=== PATIENT | male | born 1930 | race Caucasian/White ===

== ENCOUNTER 2017-05-13 06:21 | Day surgery (SDC) | payer OTHER ==
[2017-05-12 10:52] VITALS: BMI 30.9
[2017-05-13] MEDS ORDERED: MIDAZOLAM HCL 2 MG/2 ML SINGLE DOSE VIAL ONE (07:51)
[2017-05-13] MEDS ORDERED: PROPOFOL 20 ML ONE (07:51)
[2017-05-13] MEDS ORDERED: LIDOCAINE HCL/PF 2% SDV 5ML VIAL ONE (08:09)
[2017-05-13] MEDS ORDERED: LEVOFLOXACIN 500 MG IVPB 100 ML IVPB ONE (08:09)
[2017-05-13] MEDS ORDERED: LEVOFLOXACIN 500 MG PREMIX BAG IVPB ONE (08:12)
[2017-05-13] MEDS ORDERED: DEXAMETHASONE SOD PHOSPHATE 4 MG/1 ML VIAL ONE (08:23)
[2017-05-13] MEDS ORDERED: SEVOFLURANE 250 ML BTL ONE (08:32)
[2017-05-13] MEDS ORDERED: FUROSEMIDE 40 MG/4 ML INJECTABLE VIAL ONE (09:31)
[2017-05-13] MEDS ORDERED: oxyCODONE HCL 5 MG TABLET PO PRN (09:38)
--- NOTE | 2017-05-13 09:42 | OP ---
Operative Note - Note: Operative Date: 05/13/17 Pre-Operative Diagnosis: large left lateral wall bladder tumor Operation: TURBT Findings: very large left lat wall/trigone bladder tumor Post-Operative Diagnosis: Same as Pre-op Surgeon: Valentín Woodruff Anesthesia: General Specimens Removed: bladder tumor Estimated Blood Loss (mls): 20 Operative Report Dictated: Yes
[2017-05-13] MEDS ORDERED: PROMETHAZINE HCL 25 MG/1 ML VIAL IVPUSH PRN (09:47)
[2017-05-13] MEDS ORDERED: ONDANSETRON 4 MG/2 ML VIAL IVPUSH PRN (09:47)
--- NOTE | 2017-05-13 12:08 | OP ---
DATE OF OPERATION: PREOPERATIVE DIAGNOSIS: Large bladder tumor. POSTOPERATIVE DIAGNOSIS: Large bladder tumor. PROCEDURE: Transurethral resection of bladder tumor. SURGEON: Lisa Oneil MD INDICATION: The patient is an 87-year-old male for workup of hematuria noted to have a very large left lateral wall and trigone bladder tumor. Took him up for resection. Risks, benefits, and alternatives were discussed in detail. DESCRIPTION OF PROCEDURE: After informed consent was obtained, the patient was taken to the OR and placed supine on the table. Cardiac monitoring was administered. General anesthesia was established. She was prepped and draped in the dorsal lithotomy position. A 22-sheath to 26-sheath resectoscope with a visual obturator was inserted to the urethra without difficulty. There was a small stricture in the anterior urethra, but this was bypassed with a scope. The prostatic urethra, was approximately 4cm. There was a very large left-sided bladder tumor that superficially appeared papillary to superficial surface, but as I cut deep into it, it was solid. It was completely covering the whole left side of the lateral wall and trigone of the bladder. The left ureteral orifice would not be visualized. Right ureteral orifice was seen. There was another small tumor next to the right ureteral orifice, and this was resected first. Then attention was turned to the large tumor, and approximately 50% of the tumor was resected. It was approximately 6 cm in size. It was very large. Approximately 50% of the tumor was resected as well as a portion of the base of the tumor as it entered into the bladder wall. All bleeding sites were cauterized. At the end of the procedure, no active bleeding was noted. All tumor chips were removed with the Parking Panda evacuator and sent to Pathology for analysis. A 22-Cypriot Mandujano catheter was placed for straight drainage, and pink-tinged urine was retrieved. The patient was awoken from anesthesia and transferred to recovery room in stable condition. There were no complications. Estimated blood loss was 20 mL. LISA ONEIL M.D. [id number] MTDD
[2017-05-13] MEDS: DEXTROSE 5%-0.45% SALINE 1,000 ML IV SCH (17:30)
[2017-05-13] MEDS: LACTATED RINGERS SOLUTION 1,000 ML IV SCH (17:30)
[2017-05-14 05:32] VITALS: TEMP 98
[2017-05-14] MEDS ORDERED: LEVOFLOXACIN 500 MG TABLET (FP) PO SCH (10:00)
[2017-05-14] MEDS: DEXTROSE 5%-0.45% SALINE 1,000 ML IV SCH (10:28)
[2017-05-14] MEDS: LACTATED RINGERS SOLUTION 1,000 ML IV SCH (10:28)
[2017-05-14 11:05] VITALS: BP 132/72; PULSE 70
--- NOTE | 2017-05-14 12:31 | PATH ---
Surgical Pathology Report Patient Name: ERIKA CALZADA [facility]. Rec. #: [id number] /Age/Gender: 1930 (Age: 87) / M Account: [id number] Location: AMBULATORY SURG Taken: 05/13/2017 Received: 05/13/2017 Reported: 05/14/2017 Physicians: Valentín Woodruff M.D. 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 LAMINA PROPRIA INVASION: NOT IDENTIFIED. MUSCULARIS PROPRIA (DETRUSOR): NOT IDENTIFIED. CARCINOMA IN SITU (CIS): NOT IDENTIFIED. Electronically Signed Franky Hess M.D. Gross Description Received in formalin labeled "bladder tumor" is a 4.5 x 3.0 x 0.5 cm aggregate of corcoran-pink soft tissue fragments. The formalin is filtered and the specimen is entirely submitted in 3 cassettes. /05/13/2017 saudi05/13/2017
== END 2017-05-14 12:00 | disposition home or self-care (01) ==
LOC: JASU-SURG 06:21 → JASUSAT 06:21 → J8W 12:15 → JASUSAT 05-14 12:00
PROVIDERS: ATTEND Urology
PROC: 0T5B8ZZ Destruction of Bladder, Via Natural or Artificial Opening Endoscopic (ICD-10-PCS; principal; 2017-05-13 08:00)
DX: C67.9 Malignant neoplasm of bladder, unspecified (principal)
CPT/HCPCS: 88307-TC; 94760

== ENCOUNTER 2017-06-10 06:29 | Day surgery (SDC) | payer OTHER ==
[2017-06-07 14:03] VITALS: BMI 30.9
[2017-06-10] MEDS ORDERED: ONDANSETRON 4 MG/2 ML VIAL IVPUSH PRN (08:42)
[2017-06-10] MEDS ORDERED: PROMETHAZINE HCL 25 MG/1 ML VIAL IVPUSH PRN (08:42)
[2017-06-10] MEDS ORDERED: LACTATED RINGERS SOLUTION 1,000 ML IV SCH (08:45)
[2017-06-10] MEDS ORDERED: MIDAZOLAM HCL 2 MG/2 ML SINGLE DOSE VIAL ONE (08:52)
[2017-06-10] MEDS ORDERED: LEVOFLOXACIN 500 MG IVPB 100 ML IVPB ONE (08:59)
[2017-06-10] MEDS ORDERED: ROCURONIUM BROMIDE 50 MG/5 ML VIAL ONE (09:44)
[2017-06-10] MEDS ORDERED: DEXAMETHASONE SOD PHOSPHATE 4 MG/1 ML VIAL ONE (10:02)
[2017-06-10] MEDS ORDERED: LEVOFLOXACIN 500 MG PREMIX BAG IVPB ONE (10:07)
[2017-06-10] MEDS ORDERED: GLYCOPYRROLATE 0.2 MG/1 ML VIAL ONE (10:08)
[2017-06-10] MEDS ORDERED: NEOSTIGMINE METHYLSULFATE 0.5 MG/1 ML - 10 ML MDV ONE (10:08)
[2017-06-10] MEDS ORDERED: oxyCODONE HCL 5 MG TABLET PO PRN (10:16)
[2017-06-10] MEDS ORDERED: DEXTROSE 5%-0.45% SALINE 1,000 ML IV SCH (10:30)
--- NOTE | 2017-06-10 11:52 | EKG ---
Test Reason : Blood Pressure : / mmHG Vent. Rate : 072 BPM Atrial Rate : 039 BPM P-R Int : 000 ms QRS Dur : 092 ms QT Int : 380 ms P-R-T Axes : 000 -22 010 degrees QTc Int : 416 ms ATRIAL FIBRILLATION ABNORMAL ECG NO PREVIOUS ECGS AVAILABLE Confirmed by ADRIANA THOMPSON MD ([id number]) on 06/10/2017 11:51:49 AM Referred By: Valentín Woodruff Confirmed By:ADRIANA THOMPSON MD
--- NOTE | 2017-06-10 15:12 | OP ---
DATE OF OPERATION: DATE OF DICTATION: 06/10/2017 PREOPERATIVE DIAGNOSIS: Large bladder tumor. POSTOPERATIVE DIAGNOSIS: Large bladder tumor. PROCEDURE: Transurethral resection of bladder tumor. SURGEON: Lisa Oneil MD INDICATION: Patient is an 87-year-old male who underwent partial resection of a very large bladder tumor approximately 1 month ago and was taken to the OR today for repeat resection. His initial pathology did not have any muscle specimen. DESCRIPTION OF PROCEDURE: After informed consent was obtained, patient was taken to OR for completion of a TRBT. He was given 1 g of Ancef, and after general anesthesia was established, he was prepped and draped in the dorsal lithotomy position. A 26-sheath resectoscope with visual obturator was inserted into the urethra without difficulty into his normal prostatic urethra that was 4 cm and visually occlusive. The bladder was then visualized. A large bladder tumor was noted on the left trigonal bladder. The ureteral orifice could not be visualized. The bladder tumor was resected in its entirety and sent to Pathology for analysis. Separate specimen was taken at the base of the tumor to rule out muscle invasion. Even with the bladder tumor resected, a left ureteral orifice could not be seen, and no evidence of efflux from the orifice area of where the expected orifice would be was noted either. At this point, all bleeding sites were fulgurated including the base of the tumor. No other tumors were noted. There was clear efflux from the right ureteral orifice. At this point, resectoscope was then removed, after removal of all the tumor fragments, and a Mandujano catheter was then placed for drainage. Light pink tinged urine was retrieved. The patient was awoken from anesthesia and transferred to recovery room in stable condition. There were no complications. Estimated blood loss was minimal. LISA ONEIL M.D. [id number]
--- NOTE | 2017-06-11 13:09 | PATH ---
Surgical Pathology Report Patient Name: ERIKA CALZADA Med. Rec. #: [id number] /Age/Gender: 1930 (Age: 87) / M Account: [id number] Location: [facility] MED/SURG Taken: 06/10/2017 Received: 06/10/2017 Reported: 06/11/2017 Physicians: Valentín Woodruff M.D. Specimen(s) Received A: BLADDER TUMOR B: BASE OF TUMOR Clinical History Bladder tumor Final Diagnosis A. BLADDER, TUR: NON-INVASIVE LOW-GRADE PAPILLARY UROTHELIAL CARCINOMA. NO FLAT UROTHELIAL CARCINOMA IN SITU IDENTIFIED. NO LYMPH VASCULAR INVASION IDENTIFIED. B. BLADDER, BASE OF TUMOR, TUR: NON-INVASIVE LOW GRADE PAPILLARY UROTHELIAL CARCINOMA. NO FLAT UROTHELIAL CARCINOMA IN SITU IDENTIFIED. NO LYMPH VASCULAR INVASION IDENTIFIED. MUSCULARIS PROPRIA (DETRUSOR MUSCLE) IS PRESENT AND IS FREE OF CARCINOMA. Comment: Also see prior specimen [id number]. Electronically Signed Vinicius Dozier M.D. Gross Description A. Received in formalin labeled "bladder tumor," is a 3.0 x 2.0 x 0.3 cm aggregate of corcoran soft tissue fragments. The formalin is filtered and the specimen is entirely submitted in one cassette. B. Received in formalin labeled "base of tumor," are 6 corcoran-pink soft tissue fragments ranging from 0.4-0.9 cm in greatest dimension. The specimens are submitted in toto in one cassette. /06/10/201706/10/2017
[2017-06-11 15:26] VITALS: BP 137/70; PULSE 81; TEMP 97.8
== END 2017-06-11 16:30 | disposition home or self-care (01) ==
LOC: JASUSAT 06:29 → JASU-SURG 06:29 → J8W 15:15 → JASUSAT 06-11 16:30
PROVIDERS: ATTEND Urology
PROC: 0T5B8ZZ Destruction of Bladder, Via Natural or Artificial Opening Endoscopic (ICD-10-PCS; principal; 2017-06-10 08:30)
DX: C67.9 Malignant neoplasm of bladder, unspecified (principal)
CPT/HCPCS: 88307-TC; 93005; 93010; 94760

== ENCOUNTER 2019-05-02 15:00 | Emergency (ER) | payer OTHER ==
[2019-05-02 15:24] VITALS: BMI 25.3
--- NOTE | 2019-05-02 16:04 | PDOC ---
History of Present Illness - General Chief Complaint: Nausea/Vomiting Stated Complaint: VOMITING Time Seen by Provider: 05/02/19 16:03 History Source: Patient Exam Limitations: No Limitations - History of Present Illness Initial Comments: Pt is an 89 yo M, with PMH of HTN, hypothyroidism, R eye blindness, and bladder/ prostate mass (removed by TURBT), who is presenting with multiple episodes of nausea and NBNB vomiting since today. Pt states he has been eating normally and in his usual state of health until this morning. Pt denies any abdominal pain and states his BMs have been normal for him. Pt also endorses b/l eye drainage when prompted, "over a few weeks I guess". Pt denies any recent fevers/chills, neck stiffness, headache, vision changes, syncope, chest pain, palpitations, SOB , abdominal pain, urinary symptoms, diarrhea/constipation, or leg swelling. Allergies: NKDA PCP: Stephan Social: Pt denies any cigarette, alcohol, or drug use. Pt denies any recent travel or sick contacts. Pt lives with his daughter and is the only one sick. Surgical: b/l inguinal hernia repair, bladder/prostate as above Family: no relevant history. 05/02/19 16:32 05/02/19 16:35 Past History - Travel Traveled outside of the country in the last 30 days: No Close contact w/someone who was outside of country & ill: No - Past Medical History Allergies/Adverse Reactions: Allergies Allergy/AdvReac Type Severity Reaction Status Date / Time Penicillins Allergy Verified 06/10/17 07:23 Home Medications: Ambulatory Orders Diltiazem Cd [Cardizem Cd -] 120 mg PO DAILY 05/12/17 Levothyroxine [Synthroid -] 100 mcg PO DAILY 05/12/17 Sulfamethoxazole/Trimethoprim [Bactrim Ds -] 1 tab PO BID #14 tablet 05/02/19 Cancer: Yes (PROSTATE) COPD: No HTN: Yes Thyroid Disease: Yes - Suicide/Smoking/Psychosocial Hx Smoking History: Former smoker Have you smoked in the past 12 months: No If you are a former smoker, when did you quit?: 20YRS AGO Information on smoking cessation initiated: No Hx Alcohol Use: No Drug/Substance Use Hx: No Substance Use Type: None Hx Substance Use Treatment: No Review of Systems - Review of Systems Able to Perform ROS?: Yes Is the patient limited Ethiopian proficient: No Constitutional: Yes: Weight Stable. No: Chills, Diaphoresis, Fever, Loss of Appetite, Malaise, Weakness HEENTM: Yes: Blurred Vision (chronic R eye blindness, L eye "starting to go blind"). No: Nose Congestion, Throat Pain, Throat Swelling, Difficulty Swallowing Respiratory: No: Cough, Orthopnea, Shortness of Breath Cardiac (ROS): No: Chest Pain, Edema, Irregular Heart Rate, Lightheadedness, Palpitations, Syncope, Chest Tightness ABD/GI: Yes: Nausea, Poor Appetite, Poor Fluid Intake, Vomiting. No: Constipated, Diarrhea, Indigestion, Abdominal cramping : No: Burning, Dysuria, Hematuria, Pain, Urgency Musculoskeletal: No: Back Pain, Joint Pain, Muscle Pain, Muscle Weakness Integumentary: No: Rash Neurological: No: Headache, Numbness, Weakness, Unsteady Gait (ambulates with walker, no recent falls), Dizziness Psychiatric: No: Sleep Pattern Change, Change in Appetite Endocrine: No: Increased Urine, Change in Weight Hematologic/Lymphatic: No: Anemia, Blood Clots, Easy Bleeding, Easy Bruising All Other Systems: Reviewed and Negative *Physical Exam - Vital Signs Last Vital Signs Temp Pulse Resp BP Pulse Ox 97 F L 100 H 20 130/77 94 L 05/02/19 15:22 05/02/19 15:22 05/02/19 15:22 05/02/19 15:22 05/02/19 15:22 - Physical Exam Comments: Tachycardia, pt afebrile. Pt in NAD, thin body habitus. Pt alert and oriented x3. video production specialist generally intact, muscular strength and sensation intact. No midline spinal tenderness, step-offs, or crepitus. Head normocephalic, atraumatic. Eyes PERRLA, EOMI. Oropharynx without erythema or exudates, no LAD b/l. No nasal congestion, hearing intact. Clear heart sounds, S1/S2, no JVD, b/l pedal edema, or heart murmur. Clear lung sounds, no respiratory distress, wheezes, crackles, or accessory muscle use. No abdominal or CVA tenderness to palpation, no rebound, no guarding. Abdomen soft, non-distended, and with normoactive bowel sounds. Skin without jaundice or rash. 05/02/19 16:38 Vital Signs - Vital Signs #1 Temperature: 98.4 F Temperature Source: Rectal ED Treatment Course - LABORATORY CBC & Chemistry Diagram: 05/02/19 16:55 05/02/19 16:55 Medical Decision Making - Medical Decision Making Pt was seen at bedside, also will be seen by attending Dr. Mcadams. Pt presenting with complaints of NBNB nausea and vomiting since this morning. Will evaluate for electrolyte abnormalities, provide GI cocktail. Pt afebrile with no abdominal TTP. Likely to discharge home if improvement and tolerates PO intake. Provided 1L IV NS, 4 mg IV zofran, and 20 mg IV pepcid for improvement of nausea and vomiting.. Will continue to reassess pt and monitor for symptomatic improvement. ECG: NSR with PACs, intervals WNL (HR 99, ND 150, QRS 88, QTc 451). No TWIs or significant ST segment changes. No significant changes from prior ECG (pt was in Afib 05/2017). 05/02/19 17:46 CBC and CMP generally WNL Trop <.02 Pt with no abdominal pain or TTP Pt tolerated PO challenge. Pending UA, lab called. Pt endorsed to night team. 05/02/19 18:53 UA +LE, +bacteria -- providing first dose of Bactrim and will PO challenge with abx 05/02/19 19:19 Called pts daughter who will come to oyster picker the pt. Pt tolerated Bactrim. Pt can f/u with PCP. Strict return precautions provided. Sent bactrim to pts pharmacy. 05/02/19 19:29 *DC/Admit/Observation/Transfer Diagnosis at time of Disposition: Nausea and vomiting Qualifiers: Vomiting type: unspecified Vomiting Intractability: non-intractable Qualified Code(s): R11.2 - Nausea with vomiting, unspecified UTI (urinary tract infection) Qualifiers: Urinary tract infection type: acute cystitis Hematuria presence: with hematuria Qualified Code(s): N30.01 - Acute cystitis with hematuria - Discharge Dispostion Disposition: HOME Condition at time of disposition: Improved Decision to Admit order: No - Prescriptions Prescriptions: Sulfamethoxazole/Trimethoprim [Bactrim Ds -] 1 tab PO BID #14 tablet - Referrals Referrals: Selena Rothman MD [Primary Care Provider] - - Patient Instructions Printed Discharge Instructions: DI for Urinary Tract Infection (UTI), DI for Vomiting -- Adult Additional Instructions: You were seen in the ER today for vomiting. The results of your labs and imaging today showed a urinary tract infection. Please follow-up with your primary care doctor within 1-2 days to discuss your visit and make sure your symptoms have improved. Please return to the ER if you have any worsening pain, development of fevers or chills, loss of consciousness, inability to tolerate food or fluids, or any other concerns. I have sent antibiotics to your pharmacy. Please take these medications as prescribed. - Post Discharge Activity
[2019-05-02] MEDS ORDERED: SODIUM CHLORIDE 1,000 ML IV STA (16:05)
[2019-05-02] MEDS ORDERED: FAMOTIDINE 20 MG/50 ML IVPB 20 MG/50 ML MG IVPB ONE ×2 (16:05→17:05)
[2019-05-02] MEDS ORDERED: ONDANSETRON 4 MG/2 ML VIAL IVPUSH ONE (16:05)
[2019-05-02] MEDS ORDERED: ONDANSETRON 4 MG/2 ML VIAL ONE (17:05)
[2019-05-02 17:15] LABS: BASO % 0.2 % (0-2.0); EOS % 0.1 % (0-4.5); HEMATOCRIT 48.8 % (35.4-49); HEMOGLOBIN 16.9 GM/dL (11.7-16.9); MCHC 34.6 g/dl (32.0-35.9); MEAN CELL VOLUME 92.4 fl (80-96); NEUT % 88.7 % (42.8-82.8); PLATELET COUNT 353 K/MM3 (134-434); RBC 5.28 M/mm3 (4.00-5.60); RDW 14.8 % (11.9-15.9); WHITE BLOOD COUNT 10.7 K/mm3 (4.0-10.0)
--- NOTE | 2019-05-02 17:15 | PDOC ---
Attending Attestation - Resident Resident Name: Cally Monae - ED Attending Attestation I have performed the following: I have examined & evaluated the patient, The case was reviewed & discussed with the resident, I agree w/resident's findings & plan, Exceptions are as noted - HPI HPI: 05/02/19 17:13 89y M pmhx htn, hl, hypothyroidism, ?bladder mass, presents with complaint of n/ v since this morning. pt notes he cant keep anything down, and has been vomiting that wasnt bloody nor coffeegrond like - was food contents/clear. pt denies any associate abdominal pain, testicular pain, headache, vision changes, dizziness/vertigo, focal numness/tingling/weakness, cp, sob, diaphoresis, back pain, diarrhea, melena, bpr. No recent travel or sick contacts. on exam: general: no acute distress abd: soft nontender, no rebound/guarding card: rrr, no mrg pulmL cta b/l HEENT: moist mucusmembranes ext: no edema, no calf tennderness possible age, no syumtoms to sgugest metabolic derangement, ICH, acs, acute abd process - Physicial Exam PE: 05/06/19 11:02 see above - Medical Decision Making 05/02/19 18:55 labs reviewed pt feeling improved will PO challenge the pt if pt feeling well, tolerating oral intake anticipate dc with pMD fu and outpatient mangement Heart Score/ECG Review - ECG Impressions Comment:: 05/02/19 18:56 Twelve-lead EKG was performed and reviewed by me. There is normal sinus rhythm with a normal rate. Rate of 99 PACs present The axis is normal. The intervals are normal. There is normal R wave progression There are no ST or T wave abnormalities.
[2019-05-02 17:48] LABS: ALBUMIN 3.4 g/dl (3.4-5.0); BLOOD UREA NITROGEN 22.9 mg/dL (7-18); CALCIUM 9.4 mg/dL (8.5-10.1); CREATININE 1.1 mg/dL (0.55-1.3); MAGNESIUM 2.3 mg/dL (1.8-2.4); POTASSIUM 3.9 mmol/L (3.5-5.1); TOT PROT 7.9 g/dl (6.4-8.2)
[2019-05-02 18:57] LABS: EPI CELLS 1.3 /HPF (0-5/HPF); HYALINE CASTS 8 /lpf (0-8); URINE APPEARANCE CLOUDY; URINE BACTERIA 4634.9 /hpf (NEGATIVE); URINE BILIRUBIN 1+ (NEGATIVE); URINE COLOR DK YELLOW; URINE GLUCOSE (UA) NEGATIVE (NEGATIVE); URINE KETONE TRACE (NEGATIVE); URINE LEUK ESTERASE 3+ (NEGATIVE); URINE NITRITE NEGATIVE (NEGATIVE); URINE PROTEIN 1+ (NEGATIVE); URINE RBC 4 /hpf (0-4); URINE WBC 202 /hpf (0-5)
[2019-05-02] MEDS ORDERED: SULFAMETHOXAZOLE/TRIMETHOPRIM 800MG/160MG D.S. TABLET PO ONE (19:01)
[2019-05-02] MEDS ORDERED: SULFAMETHOXAZOLE/TRIMETHOPRIM 800MG/160MG D.S. TABLET ONE (19:17)
[2019-05-02 21:50] VITALS: BP 145/87; PULSE 108; TEMP 98.7
--- NOTE | 2019-05-03 09:04 | EKG ---
Test Reason : Blood Pressure : / mmHG Vent. Rate : 099 BPM Atrial Rate : 099 BPM P-R Int : 150 ms QRS Dur : 088 ms QT Int : 352 ms P-R-T Axes : 052 002 067 degrees QTc Int : 451 ms SINUS RHYTHM WITH PREMATURE ATRIAL COMPLEXES OTHERWISE NORMAL ECG WHEN COMPARED WITH ECG OF 10-JUN-2017 09:21, SINUS RHYTHM HAS REPLACED ATRIAL FIBRILLATION T WAVE AMPLITUDE HAS DECREASED IN ANTERIOR LEADS Confirmed by KIMI FOX, AMOS ([id number]) on 05/03/2019 9:03:48 AM Referred By: Confirmed By:AMOS BOLDEN MD
== END 2019-05-02 21:27 | disposition home or self-care (01) ==
LOC: JER 15:00
PROC: 3E033GC Introduction of Other Therapeutic Substance into Peripheral Vein, Percutaneous Approach (ICD-10-PCS; principal; 2019-05-02)
PROC: 3E0337Z Introduction of Electrolytic and Water Balance Substance into Peripheral Vein, Percutaneous Approach (ICD-10-PCS; 2019-05-02)
DX: R11.2 Nausea with vomiting, unspecified (principal); N30.01 Acute cystitis with hematuria; I10 Essential (primary) hypertension; E03.9 Hypothyroidism, unspecified; H54.7 Unspecified visual loss; Z87.891 Personal history of nicotine dependence
CPT/HCPCS: 36415; 71045-TC-FY; 80053; 81003; 82550; 83690; 83735; 84484; 85025; 87086; 87186; 93005; 93010; 96361; 96365; 96375; 99283-25; J7030